=== PATIENT | female | born 1940 | race Caucasian/White ===

== ENCOUNTER 2019-12-16 | Emergency (ER) | payer MEDICARE ==
[2019-12-16] MEDS ORDERED: LORTAB 1010 MG PO (15:09)
[2020-06-01] MEDS ORDERED: SIMVASTATIN40 MG PO (12:06)
[2020-06-01] MEDS ORDERED: OMEPRAZOLE DR40 MG PO (12:07)
[2020-06-01] MEDS ORDERED: DITROPAN5 MG/TA1 PO (12:07)
[2020-06-01] MEDS ORDERED: GABAPENTIN100 MG PO (12:07)
[2020-06-01] MEDS ORDERED: OMEGA 3-6-9 COMPLEX PO (12:07)
[2020-06-01] MEDS ORDERED: CENTRUM WOMEN1 TAB PO (12:08)
[2020-06-01] MEDS ORDERED: [UNRECOGNIZED DRUG - OTHER] PO (12:08)
[2020-06-01] MEDS ORDERED: L-LYSINE500 M2 PO (12:09)
[2020-06-01] MEDS ORDERED: FAMOTIDINE20 M1 PO (12:09)
[2020-06-01] MEDS ORDERED: CURAMIN PO (12:09)
[2020-06-01] MEDS ORDERED: FLEXERIL PO (12:10)
[2020-06-01] MEDS ORDERED: LORCET 5-325 MG1 TAB PO (12:10)
[2020-06-01] MEDS ORDERED: CALCIUM CITRAT200 MG PO (12:11)
[2020-06-01] MEDS ORDERED: BIOTIN5000 MC2 PO (12:11)
== END 2019-12-16 15:30 | disposition home or self-care (01) ==
DX: S42.302A Unspecified fracture of shaft of humerus, left arm, initial encounter for closed fracture (principal); I10 Essential (primary) hypertension; W01.0XXA Fall on same level from slipping, tripping and stumbling without subsequent striking against object, initial encounter; Y92.830 Public park as the place of occurrence of the external cause

== ENCOUNTER 2021-04-11 07:00 | Day surgery (SDC) | payer MEDICARE ==
[~2021-04-11 07:00] MED LIST: BIOTIN5000 MC2 PO; CALCIUM CITRAT200 MG PO; CENTRUM WOMEN1 TAB PO; CURAMIN PO; DITROPAN5 MG/TA1 PO; FAMOTIDINE20 M1 PO; FLAX SEED1000 MG PO; FLEXERIL PO; GABAPENTIN100 MG PO; L-LYSINE500 M2 PO; LORCET 5-325 MG1 TAB PO; LORTAB 1010 MG PO; LOSARTAN POTASS25 MG PO; NAPROXEN250 MG PO; NON ASPIRI2 PO; OMEGA 3-6-9 COMPLEX PO; OMEPRAZOLE DR40 MG PO; SIMVASTATIN40 MG PO; TYLENOL PM PO; VITAMIN D325 MCG PO; [UNRECOGNIZED DRUG - OTHER] PO
[2021-04-11 08:50] VITALS: BP 125/71
== END 2021-04-11 09:10 | disposition home or self-care (01) ==
LOC: ENDO 07:00 → ORM 08:30 → ENDO 08:30
PROVIDERS: ATTEND Surgery
PROC: 0DJD8ZZ Inspection of Lower Intestinal Tract, Via Natural or Artificial Opening Endoscopic (ICD-10-PCS; principal; 2021-04-11)
PROC: 0DJ08ZZ Inspection of Upper Intestinal Tract, Via Natural or Artificial Opening Endoscopic (ICD-10-PCS; 2021-04-11)
DX: Z12.11 Encounter for screening for malignant neoplasm of colon (principal); K64.8 Other hemorrhoids; K44.9 Diaphragmatic hernia without obstruction or gangrene; I10 Essential (primary) hypertension; E11.9 Type 2 diabetes mellitus without complications
CPT/HCPCS: 43235; G0121